=== PATIENT | female | born 1965 | race Caucasian/White ===

== ENCOUNTER 2017-09-08 06:14 | Day surgery (SDC) | payer MEDICAID ==
[2017-09-07 12:49] VITALS: BMI 29.2
[2017-09-08] MEDS ORDERED: Propofol 10 mg/ml Inj (20 ML) ONE (07:29)
[2017-09-08] MEDS ORDERED: HYDROmorphone 0.5 mg/0.5 ml ISec IVP PRN (08:22)
[2017-09-08] MEDS ORDERED: Lactated Ringer's 1,000 ML IV SCH (08:30)
[2017-09-08 09:51] VITALS: BP 154/86; PULSE 65; RESP 18; TEMP 97.3; O2SAT 100
--- NOTE | 2017-09-09 08:58 | OP ---
PROCEDURE DATE: 09/08/2017 PREOPERATIVE DIAGNOSIS: Abnormal uterine bleeding. POSTOPERATIVE DIAGNOSIS: Abnormal uterine bleeding. PROCEDURE PERFORMED: Hysteroscopy with dilation and curettage. SURGEON: Dr. Jatin Figueredo. DIRECTOR REGULATORY COMPLIANCE: None. ANESTHESIA: General LMA. ANESTHESIOLOGIST: Dr. Bolaños. COMPLICATIONS: None. ESTIMATED BLOOD LOSS: Minimal. SPECIMEN: Endometrial curettage. FINDINGS: On hysteroscopy being a thin-appearing endometrial lining, normal appearing bilateral fallopian tube ostia, normal appearing cervical lining. PROCEDURE IN DETAIL: After informed consent was obtained, the patient was taken to the operating room and placed in the dorsal supine position. General anesthesia was then induced and LMA was placed by the anesthesia team. She was thereafter placed in dorsal lithotomy position. She was then prepped and draped in the usual sterile manner. The urinary bladder was straight catheterized and approximately a 200 mL of urine was obtained. Bimanual exam was performed and anteverted uterus was noted. A sterile speculum was then placed in the vagina and the anterior lip of the cervix was grasped with a single-toothed tenaculum. The cervix was thereafter gradually dilated and diagnostic hysteroscope was introduced into the patient's uterine cavity. Survey of the uterus revealed normal-appearing uterine lining with bilateral tubal ostia visualized. The hysteroscope was thereafter removed and on this removal the normal-appearing cervical lining was noted. Sharp curettage was thereafter performed, endometrial curettage was collected. The tenaculum was thereafter removed from anterior lip of the cervix. The tenaculum site was noted to be hemostatic. The speculum was thereafter removed from the vagina. The patient was taken . She was extubated and taken to the recovery room in stable condition. The sponge, lap, needle, and instrument count was correct x3 as reported to me. Jatin Figueredo MD
== END 2017-09-08 10:20 | disposition home or self-care (01) ==
LOC: C.SDS 06:14
PROVIDERS: ATTEND Student in an Organized Health Care Education/Training Program
DX: N93.9 Abnormal uterine and vaginal bleeding, unspecified (principal)
CPT/HCPCS: 58558; 88305; J2001; J2405; J2704; J3010